=== PATIENT | male | born 1975 | race Caucasian/White ===

== ENCOUNTER 2018-12-07 15:12 | Emergency (ER) | payer BC ==
[2018-12-07 17:24] LABS: ABS Basophils 0.1 10^3/ul (0-0.2); ABS Eosinophils 0.7 10^3/ul (0-0.6); ABS Lymphocytes 2.4 10^3/ul (1.0-4.8); ABS Neutrophils 12.5 10^3/ul (1.5-7.7); ABS Nucleated RBC 0 10^3/ul; Eosinophil % 4.1 %; Hematocrit 48 % (36-46); Lymphocyte % 14.4 %; Mean Corpuscular HGB Conc 34 g/dL (31-36); Mean Corpuscular Hemoglobin 31 pg (27-31); Mean Corpuscular Volume 93 fL (80-94); Mean Platelet Volume 7.5 fL (7.4-10.4); Nucleated Red Blood Cells % 0.1; Platelet Count 411 10^3/uL (150-450); Red Blood Count 5.14 10^6 /uL (4.18-5.48); Red Cell Distribution Width 13 % (10.5-15); White Blood Count 16.6 10^3/uL (3.5-10.8)
[2018-12-07 17:41] LABS: Albumin 4.7 g/dL (3.2-5.2); Albumin/Globulin Ratio 1.5 (1-3); BUN/Creatinine Ratio 12.5 (8-20); C Reactive Protein 12.45 mg/L (<8.01); Calcium 9.9 mg/dL (8.6-10.3); EGFR African American 74.9 (>60); EGFR Non-African American 61.9 (>60); Globulin 3.1 g/dL (2-4); Potassium 3.9 mmol/L (3.5-5.0); Total Bilirubin 0.6 mg/dL (0.2-1.0); Total Protein 7.8 g/dL (6.4-8.9)
[2018-12-07 20:36] LABS: Urine Appearance Cloudy; Urine Bacteria Absent (Absent); Urine Bilirubin Negative (Negative); Urine Blood Negative (Negative); Urine Color Amber; Urine Glucose Negative (Negative); Urine Ketones Trace (Negative); Urine Nitrite Negative (Negative); Urine Protein 1+(30 mg/dL) (Negative); Urine Red Blood Cell Trace(0-2/hpf) (Absent); Urine Specific Gravity 1.029 (1.010-1.030); Urine Urobilinogen Negative (Negative); Urine White Blood Cell 1+(6-10/hpf) (Absent)
[2018-12-07] MEDS ORDERED: NS 0.9% 1000 ML** 1,000 ML IV ONE (21:04)
[2018-12-07] MEDS ORDERED: Ketorolac INJ* 30 MG/ML 1 ML VIAL IV PUSH ONE (21:05)
--- NOTE | 2018-12-07 21:07 | ED ---
Abdominal Pain/Male - HPI Summary HPI Summary: Pt is a 43 y/o M presenting to the ED with a chief complaint of abd pain onset in his umbilical region that originally radiated to the RLQ but now radiates to the LLQ. It worsened over time and occasionally radiates to his shoulder/back, and he had associated n/v/d. He denies fever, and denies cp or sob per triage note. - History of Current Complaint Chief Complaint: EDAbdPain Stated Complaint: SHARP ABD PAIN PER PT Time Seen by Provider: 12/07/18 20:58 Hx Obtained From: Patient Onset/Duration: Gradual Onset, Lasting Days, Still Present Timing: Intermittent, Lasting Hours Severity Initially: Moderate Severity Currently: Moderate Pain Intensity: 7 Pain Scale Used: 0-10 Numeric Location: Umbilical Radiates: Yes Radiates to: LLQ, RLQ Character: Cramping Aggravating Factor(s): Food, Movement Alleviating Factor(s): Other: - lying flat Associated Signs And Symptoms: Positive: Nausea, Vomiting, Diarrhea. Negative: Fever, Chest Pain - Allergies/Home Medications Allergies/Adverse Reactions: Allergies Allergy/AdvReac Type Severity Reaction Status Date / Time No Known Allergies Allergy Verified 12/07/18 15:48 PMH/Surg Hx/FS Hx/Imm Hx Previously Healthy: Yes Musculoskeletal History: Reports: Hx Arthritis - LEFT SHOULDER, Hx Tendonitis - LEFT SHOULDER Sensory History: Reports: Hx Contacts or Glasses - CONTACTS/GLASSES Denies: Hx Hearing Aid Opthamlomology History: Reports: Hx Contacts or Glasses - CONTACTS/GLASSES Neurological History: Reports: Other Neuro Impairments/Disorders - ADD Psychiatric History: Reports: Hx Anxiety - BIPOLAR, Hx Depression - BIPOLAR - Surgical History Surgery Procedure, Year, and Place: WISDOM TEETH REMOVAL Hx Anesthesia Reactions: No - Immunization History Date of Tetanus Vaccine: 10 weeks ago, per patient Infectious Disease History: No Infectious Disease History: Denies: Traveled Outside the [place] in Last 30 Days - Social History Alcohol Use: None Hx Substance Use: Yes Substance Use Type: Reports: Marijuana Substance Use Comment - Amount & Last Used: MJ-ON OCCASION Hx Tobacco Use: Yes Smoking Status (MU): Former Smoker Amount Used/How Often: 1 PPD X 18 YRS. Have You Smoked in the Last Year: No Review of Systems Negative: Fever Negative: Chest Pain Negative: Shortness Of Breath Positive: Abdominal Pain, Vomiting, Diarrhea, Nausea All Other Systems Reviewed And Are Negative: Yes Physical Exam - Summary Physical Exam Summary: VITAL SIGNS: Reviewed. GENERAL: Patient is a well-developed and nourished male who is lying comfortable in the stretcher. Patient is not in any acute respiratory distress. HEAD AND FACE: No signs of trauma. No ecchymosis, hematomas or skull depressions. No sinus tenderness. EYES: PERRLA, EOMI x 2, No injected conjunctiva, no nystagmus. EARS: Hearing grossly intact. Ear canals and tympanic membranes are within normal limits. MOUTH: Oropharynx within normal limits. NECK: Supple, trachea is midline, no adenopathy, no JVD, no carotid bruit, no c- spine tenderness, neck with full ROM. CHEST: Symmetric, no tenderness at palpation LUNGS: Clear to auscultation bilaterally. No wheezing or crackles. CVS: Regular rate and rhythm, S1 and S2 present, no murmurs or gallops appreciated. ABDOMEN: LLQ tenderness. No signs of distention. No rebound no guarding, and no masses palpated. Bowel sounds are normal. EXTREMITIES: FROM in all major joints, no edema, no cyanosis or clubbing. NEURO: Alert and oriented x 3. No acute neurological deficits. Speech is normal and follows commands. SKIN: Dry and warm Triage Information Reviewed: Yes Vital Signs On Initial Exam: Initial Vitals Temp Pulse Resp BP Pulse Ox 99 F 97 16 141/101 98 12/07/18 15:49 12/07/18 15:49 12/07/18 15:49 12/07/18 15:49 12/07/18 15:49 Vital Signs Reviewed: Yes Diagnostics - Vital Signs Vital Signs Temp Pulse Resp BP Pulse Ox 12/07/18 20:13 97.8 F 90 18 160/100 97 12/07/18 15:49 99 F 97 16 141/101 98 - Laboratory Lab Results: Lab Results 12/07/18 12/07/18 12/07/18 Range/Units 17:03 17:03 17:03 WBC 16.6 H (3.5-10.8) 10^3/uL RBC 5.14 (4.18-5.48) 10^6 /uL Hgb 16.0 (14.0-18.0) g/dL Hct 48 H (36-46) % MCV 93 (80-94) fL MCH 31 (27-31) pg MCHC 34 (31-36) g/dL RDW 13 (10.5-15) % Plt Count 411 (150-450) 10^3/uL MPV 7.5 (7.4-10.4) fL Neut % (Auto) 75.2 % Lymph % (Auto) 14.4 % [place] % (Auto) 6.0 % Eos % (Auto) 4.1 % Baso % (Auto) 0.3 % Absolute Neuts (auto) 12.5 H (1.5-7.7) 10^3/ul Absolute Lymphs (auto) 2.4 (1.0-4.8) 10^3/ul Absolute Monos (auto) 1.0 H (0-0.8) 10^3/ul Absolute Eos (auto) 0.7 H (0-0.6) 10^3/ul Absolute Basos (auto) 0.1 (0-0.2) 10^3/ul Absolute Nucleated RBC 0 10^3/ul Nucleated RBC % 0.1 Sodium 138 (135-145) mmol/L Potassium 3.9 (3.5-5.0) mmol/L Chloride 102 (101-111) mmol/L Carbon Dioxide 28 (22-32) mmol/L Anion Gap 8 (2-11) mmol/L BUN 16 (6-24) mg/dL Creatinine 1.28 H (0.67-1.17) mg/dL Est GFR ( Amer) 74.9 (>60) Est GFR (Non-Af Amer) 61.9 (>60) BUN/Creatinine Ratio 12.5 (8-20) Glucose 99 (70-100) mg/dL Lactic Acid 0.8 (0.5-2.0) mmol/L Calcium 9.9 (8.6-10.3) mg/dL Total Bilirubin 0.60 (0.2-1.0) mg/dL AST 30 (13-39) U/L ALT 39 (7-52) U/L Alkaline Phosphatase 71 (34-104) U/L C-Reactive Protein 12.45 H (<8.01) mg/L Total Protein 7.8 (6.4-8.9) g/dL Albumin 4.7 (3.2-5.2) g/dL Globulin 3.1 (2-4) g/dL Albumin/Globulin Ratio 1.5 (1-3) Lipase 31 (11.0-82.0) U/L Urine Color Urine Appearance Urine pH (5-9) Ur Specific Gay (1.010-1.030) Urine Protein (Negative) Urine Ketones (Negative) Urine Blood (Negative) Urine Nitrate (Negative) Urine Bilirubin (Negative) Urine Urobilinogen (Negative) Ur Leukocyte Esterase (Negative) Urine WBC (Auto) (Absent) Urine RBC (Auto) (Absent) Urine Bacteria (Absent) Urine Glucose (Negative) 12/07/18 Range/Units 20:25 WBC (3.5-10.8) 10^3/uL RBC (4.18-5.48) 10^6 /uL Hgb (14.0-18.0) g/dL Hct (36-46) % MCV (80-94) fL MCH (27-31) pg MCHC (31-36) g/dL RDW (10.5-15) % Plt Count (150-450) 10^3/uL MPV (7.4-10.4) fL Neut % (Auto) % Lymph % (Auto) % [place] % (Auto) % Eos % (Auto) % Baso % (Auto) % Absolute Neuts (auto) (1.5-7.7) 10^3/ul Absolute Lymphs (auto) (1.0-4.8) 10^3/ul Absolute Monos (auto) (0-0.8) 10^3/ul Absolute Eos (auto) (0-0.6) 10^3/ul Absolute Basos (auto) (0-0.2) 10^3/ul Absolute Nucleated RBC 10^3/ul Nucleated RBC % Sodium (135-145) mmol/L Potassium (3.5-5.0) mmol/L Chloride (101-111) mmol/L Carbon Dioxide (22-32) mmol/L Anion Gap (2-11) mmol/L BUN (6-24) mg/dL Creatinine (0.67-1.17) mg/dL Est GFR ( Amer) (>60) Est GFR (Non-Af Amer) (>60) BUN/Creatinine Ratio (8-20) Glucose (70-100) mg/dL Lactic Acid (0.5-2.0) mmol/L Calcium (8.6-10.3) mg/dL Total Bilirubin (0.2-1.0) mg/dL AST (13-39) U/L ALT (7-52) U/L Alkaline Phosphatase (34-104) U/L C-Reactive Protein (<8.01) mg/L Total Protein (6.4-8.9) g/dL Albumin (3.2-5.2) g/dL Globulin (2-4) g/dL Albumin/Globulin Ratio (1-3) Lipase (11.0-82.0) U/L Urine Color [place] Urine Appearance Cloudy Urine pH 5.0 (5-9) Ur Specific Gay 1.029 (1.010-1.030) Urine Protein 1+(30 mg/dl) A (Negative) Urine Ketones Trace A (Negative) Urine Blood Negative (Negative) Urine Nitrate Negative (Negative) Urine Bilirubin Negative (Negative) Urine Urobilinogen Negative (Negative) Ur Leukocyte Esterase Negative (Negative) Urine WBC (Auto) 1+(6-10/hpf) A (Absent) Urine RBC (Auto) Trace(0-2/hpf) (Absent) Urine Bacteria Absent (Absent) Urine Glucose Negative (Negative) Result Diagrams: 12/07/18 17:03 12/07/18 17:03 Lab Statement: Any lab studies that have been ordered have been reviewed, and results considered in the medical decision making process. - CT Abd/pelv CT CT Interpretation Completed By: Radiologist Summary of CT Findings: 1. Mild distention of loops of small bowel which are not pathologically obstructed. No bowel wall thickening or pneumatosis. No portal venous air is observed. Mesenteric circulation is patent. Exact transition is not clear. Distal small bowel has a normal caliber. The colon appears normal. 2. Areas of atelectasis located in lung bases. ED physician has reviewed this report. Abdominal Pain Male Course/Dx - Course Course Of Treatment: Pt is a 43 y/o M presenting to the ED with a chief complaint of abd pain onset 12/06/18 in his umbilical region that originally radiated to the RLQ but now radiates to the LLQ. It worsened over time and occasionally radiates to his shoulder/back, and he had associated n/v/d. He denies fever, and denies cp or sob per triage note. Abd/pelv CT shows: 1. Mild distention of loops of small bowel which are not pathologically obstructed. No bowel wall thickening or pneumatosis. No portal venous air is observed. Mesenteric circulation is patent. Exact transition is not clear. Distal small bowel has a normal caliber. The colon appears normal. 2. Areas of atelectasis located in lung bases. The pt will be discharged with a dx of gastroenteritis. Results discussed with the pt who is agreeable with this plan. - Diagnoses Provider Diagnoses: Gastroenteritis Discharge - Sign-Out/Discharge Documenting (check all that apply): Patient Departure Patient Received Moderate/Deep Sedation with Procedure: No - Discharge Plan Condition: Stable Disposition: HOME Referrals: Jim Landeros [Primary Care Provider] - Additional Instructions: Please follow up with your primary care provider in the next 2-3 days. Return to the emergency department with any new or worsening symptoms. - Attestation Statements Document Initiated by Scribe: Yes Documenting Scribe: Leti Xie Provider For Whom [employer] is Documenting (Include Credential): Susan Andersen MD. Scribe Attestation: Leti Bolton, scribed for Susan Andersen MD. on 12/08/18 at 0051. Status of Scribe Document: Ready
[2018-12-07] MEDS ORDERED: Iohexol 300* (CONTRAST) 10 ML SDV IV ONE (21:27)
[2018-12-08 01:23] VITALS: BP 118/82
== END 2018-12-08 01:23 | disposition home or self-care (01) ==
LOC: ED 15:12
DX: K52.9 Noninfective gastroenteritis and colitis, unspecified (principal); J98.11 Atelectasis; M13.812 Other specified arthritis, left shoulder; F31.9 Bipolar disorder, unspecified; Z87.891 Personal history of nicotine dependence
CPT/HCPCS: 36415; 74177; 80053; 81003; 81015; 83605; 83690; 85025; 86140; 87086; 96361; 96374; 99283; J1885; Q9967